=== PATIENT | female | born 1975 | race Caucasian/White ===

== ENCOUNTER 2016-08-01 11:00 | Emergency (ER) | payer MEDICAID ==
[~2016-08-01] VITALS: Ht 162.6 cm; Wt 78.0 kg
[2016-08-01] MEDS ORDERED: CETI10TA24 PO (12:06)
[2016-08-01 13:07] VITALS: BP 116/76
== END 2016-08-01 13:08 | disposition home or self-care (01) ==
LOC: ED 12:59
DX: S29.011A Strain of muscle and tendon of front wall of thorax, initial encounter (principal); X58.XXXA Exposure to other specified factors, initial encounter; Y93.89 Activity, other specified; Y92.89 Other specified places as the place of occurrence of the external cause; Y99.8 Other external cause status; Z87.01 Personal history of pneumonia (recurrent)
CPT/HCPCS: 36415; 71010; 84484; 93005

== ENCOUNTER 2016-08-14 07:53 | Emergency (ER) | payer MEDICAID ==
[~2016-08-14] VITALS: Ht 165.1 cm; Wt 78.0 kg
[~2016-08-14 07:53] MED LIST: CETI10TA24 PO
[2016-08-14 08:54] VITALS: BP 134/78
== END 2016-08-14 08:56 | disposition home or self-care (01) ==
LOC: ED 08:40
DX: J20.8 Acute bronchitis due to other specified organisms (principal); B97.89 Other viral agents as the cause of diseases classified elsewhere; Z88.0 Allergy status to penicillin; Z88.6 Allergy status to analgesic agent
CPT/HCPCS: 99283

== ENCOUNTER 2017-01-18 12:13 | Emergency (ER) | payer MEDICAID, OTHER ==
[~2017-01-18] VITALS: Ht 165.1 cm; Wt 75.0 kg
[2017-01-18 12:21] VITALS: BP 141/90
[2017-01-18] MEDS ORDERED: DEXAMETHASONE 4 MG TABLET PO ONE (12:30)
[2017-01-18] MEDS ORDERED: DEXAMETHASONE 4 MG TABLET ONE (12:35)
== END 2017-01-18 12:42 | disposition home or self-care (01) ==
LOC: ED 12:20
DX: J02.0 Streptococcal pharyngitis (principal); J03.90 Acute tonsillitis, unspecified; Z88.0 Allergy status to penicillin
CPT/HCPCS: 99283

== ENCOUNTER 2017-04-21 07:37 | Emergency (ER) | payer OTHER ==
[~2017-04-21] VITALS: Ht 165.1 cm; Wt 80.5 kg
[2017-04-21 08:28] LABS: RAPID INFLUENZA A Negative (Negative); RAPID INFLUENZA B Negative (Negative)
[2017-04-21 09:03] VITALS: BP 130/88
== END 2017-04-21 09:06 | disposition home or self-care (01) ==
LOC: ED 08:50
DX: J02.9 Acute pharyngitis, unspecified (principal); R05 Cough
CPT/HCPCS: 71046; 87400; 99285

== ENCOUNTER 2017-09-19 23:55 | Emergency (ER) | payer OTHER ==
[~2017-09-19] VITALS: Ht 165.1 cm; Wt 89.3 kg
[2017-09-19 23:56] VITALS: BP 141/89
[2017-09-20] MEDS ORDERED: AZITHROMYCIN 500 MG TABLET PO STA (01:13)
[2017-09-20] MEDS ORDERED: BENZONATATE 100 MG CAPSULE PO ONE (01:30)
[2017-09-20] MEDS ORDERED: AZITHROMYCIN 250 MG TABLET ONE (01:32)
[2017-09-20] MEDS ORDERED: BENZONATATE 100 MG CAPSULE ONE (01:32)
== END 2017-09-20 02:14 | disposition home or self-care (01) ==
LOC: ED 23:59
DX: J15.9 Unspecified bacterial pneumonia (principal)
CPT/HCPCS: 71046; 99284

== ENCOUNTER 2017-10-29 11:45 | Emergency (ER) | payer OTHER ==
[~2017-10-29] VITALS: Ht 165.1 cm; Wt 88.0 kg
[2017-10-29 11:47] VITALS: BP 160/90
[2017-10-29] MEDS ORDERED: ALBUTEROL SULFATE 2.5 MG/3 ML NPPB ONE (12:30)
[2017-10-29] MEDS ORDERED: ALBUTEROL/IPRATROPIUM 2.5MG/0.5MG, 3 ML ONE (12:39)
== END 2017-10-29 13:04 | disposition home or self-care (01) ==
LOC: ED 12:58
DX: B34.9 Viral infection, unspecified (principal); F17.200 Nicotine dependence, unspecified, uncomplicated
CPT/HCPCS: 71046; 93005; 94640; 99284